=== PATIENT | female | born 1965 | race Caucasian/White ===

== ENCOUNTER 2018-02-17 05:45 | Day surgery (SDC) | payer BC ==
[~2018-02-17] VITALS: Ht 160 cm; Wt 73.5 kg
[2018-02-17] MEDS ORDERED: CEFAZOLIN SOD 1 GM/ ISO 50 ML PREMIX IV ONE (07:00)
[2018-02-17] MEDS ORDERED: LR 1,000 ML IV SCH (08:15)
[2018-02-17] MEDS ORDERED: METOCLOPRAMIDE HCL 10 MG/2 ML VIAL IVP PRN (08:15)
[2018-02-17] MEDS ORDERED: MORPHINE 4 MG/ML INJ. SYRINGE IVP PRN ×3 (08:15)
[2018-02-17] MEDS ORDERED: OXYCODONE/ACETAMINOPHEN 5-325 TABLET PO PRN (08:45)
[2018-02-17] MEDS ORDERED: ONDANSETRON HCL 4 MG/2 ML VIAL IVP PRN (08:45)
[2018-02-17] MEDS ORDERED: HYDROcodone/ACETAMIN 5-325 MG TAB (NORCO/ VICODIN) PO PRN (08:45)
[2018-02-17] MEDS ORDERED: MORPHINE 4 MG/ML INJ. SYRINGE ONE (09:28)
[2018-02-17] MEDS ORDERED: HYDROcodone/ACETAMIN 5-325 MG TAB (NORCO/ VICODIN) ONE (10:21)
[2018-02-17 15:23] VITALS: BP_SYST 140
== END 2018-02-17 11:20 | disposition home or self-care (01) ==
LOC: SDS 05:45 → SMU 05:45 → SDS 11:20
PROVIDERS: ATTEND Specialist
DX: N90.60 Unspecified hypertrophy of vulva (principal); Z68.28 Body mass index [BMI] 28.0-28.9, adult; Z90.79 Acquired absence of other genital organ(s); Z98.890 Other specified postprocedural states; Z79.899 Other long term (current) drug therapy; I10 Essential (primary) hypertension; E66.3 Overweight
CPT/HCPCS: 88305; 93005; J0690; J2270; J7120